=== PATIENT | female | born 1945 | race Caucasian/White ===

== ENCOUNTER → 2017-10-27 | Outpatient (CLI) | payer OTHER ==
[~2017-10-27] MED LIST: ATORVASTATIN CA40 MG PO; AVAPRO300 MG PO; LEVOTHYROXINE88 MCG PO; METFORMIN HCL850 MG PO; OMEPRAZOLE40 MG PO; PROZAC20 MG PO; SINGULAIR10 MG PO; TOLTERODINE TART2 MG PO; VERAPAMIL ER180 MG PO; pro air inhaler
== END ==
LOC: MAMMO 10:49
PROVIDERS: ATTEND Family Medicine
DX: Z12.31 Encounter for screening mammogram for malignant neoplasm of breast (principal)
CPT/HCPCS: 77067

== ENCOUNTER → 2019-03-11 | Outpatient (CLI) | payer OTHER ==
--- NOTE | 2019-03-12 08:09 | Diagnostic Imaging Report ---
Bone density study Clinical History: Osteoporosis screening Bone mineral density measurement Lumbar spine 0.959 gm/cm2 Femoral neck 0.704 gm/cm2 Standard deviation from young adult population (T-score) Lumbar spine -0.8 Femoral neck -1.3 Standard deviation for age adjusted population (Z-score) Lumbar spine 1.6 Femoral neck 0.8 Comments: The alignment of lumbar spine and femoral necks are satisfactory. There is osteopenia of the femoral neck. Complete computer analysis will be sent shortly. Diagnostic criteria for osteoporosis BMD: Bone mineral density Normal: BMD measurement less than one standard deviation from young adult population Osteopenia: BMD measurement between 1 and 2.5 standard deviations Osteoporosis: BMD measurement greater than 2.5 standard deviations Severe osteoporosis: Osteoporosis and one or more fragility fractures Signed by: Dr. Fred Zhao MD on 03/12/2019 8:06 AM
== END ==
LOC: MAMMO 10:32
DX: Z12.31 Encounter for screening mammogram for malignant neoplasm of breast (principal); M89.9 Disorder of bone, unspecified
CPT/HCPCS: 77067; 77080

== ENCOUNTER → 2020-09-07 | Outpatient (CLI) | payer OTHER | LOC: MAMMO 09:41 | DX: Z12.31 Encounter for screening mammogram for malignant neoplasm of breast (principal) | CPT/HCPCS: 77067 ==

== ENCOUNTER → 2021-03-29 | Outpatient (CLI) | payer OTHER | LOC: DX 09:35 | DX: M85.88 Other specified disorders of bone density and structure, other site (principal); Z12.31 Encounter for screening mammogram for malignant neoplasm of breast | CPT/HCPCS: 77080 ==

== ENCOUNTER 2022-01-10 15:14 | Emergency (ER) | payer OTHER ==
[~2022-01-10] VITALS: Ht 165.1 cm; Wt 77.1 kg
== END 2022-01-10 15:45 | disposition home or self-care (01) ==
LOC: ER 15:20
DX: R53.1 Weakness (principal); U07.1 COVID-19; I10 Essential (primary) hypertension; E11.9 Type 2 diabetes mellitus without complications; E78.5 Hyperlipidemia, unspecified; I25.2 Old myocardial infarction; Z85.828 Personal history of other malignant neoplasm of skin
CPT/HCPCS: 99282; U0002